=== PATIENT | female | born 1995 | race Caucasian/White ===

== ENCOUNTER 2017-04-10 06:00 | Day surgery (SDC) | payer BC ==
[~2017-04-10] VITALS: Ht 157.5 cm; Wt 54.4 kg
[~2017-04-10 06:00] MED LIST: ALBU17AE13 IH; FLO44 IH; PHEL5 PO; PRED20TA PO
[2017-04-10] MEDS ORDERED: CEFAZOLIN 1 GM IVPB PREMIX 50 ML IV ONE (07:00)
[2017-04-10] MEDS ORDERED: fentaNYL CITRATE/PF 100 MCG/2 ML AMP IVP PRN ×2 (08:15)
[2017-04-10] MEDS ORDERED: SEVOFLURANE 15 MIN GAS INH ONE (08:20)
[2017-04-10] MEDS ORDERED: MIDAZOLAM HCL 5 MG/ML VIAL (VERSED) IV ONE (08:20)
[2017-04-10] MEDS ORDERED: PROPOFOL 200MG/ 20ML VIAL (DIPRIVAN) IV ONE (08:20)
[2017-04-10] MEDS ORDERED: LR 1,000 ML IV.SOLN IV ONE (08:20)
[2017-04-10] MEDS ORDERED: fentaNYL CITRATE/PF 100 MCG/2 ML AMP IVP ONE (08:20)
[2017-04-10] MEDS ORDERED: OXYCODONE/ACETAMINOPHEN 5-325 TABLET PO PRN (08:30)
[2017-04-10] MEDS ORDERED: HYDROcodone/ACETAMIN 5-325 MG TAB (NORCO/ VICODIN) PO PRN (08:30)
[2017-04-10] MEDS ORDERED: ONDANSETRON HCL 4 MG/2 ML VIAL IVP PRN (08:30)
[2017-04-10 10:32] VITALS: BP_SYST 129
== END 2017-04-10 10:20 | disposition home or self-care (01) ==
LOC: SMU 06:00 → SDS 06:00
PROVIDERS: ATTEND Specialist
DX: N89.6 Tight hymenal ring (principal); J45.909 Unspecified asthma, uncomplicated; Z98.890 Other specified postprocedural states; Z79.899 Other long term (current) drug therapy
CPT/HCPCS: 56700; 58558; J0690; J2250; J2704; J3010; J7120

== ENCOUNTER 2018-03-12 08:03 | Day surgery (SDC) | payer BC ==
[~2018-03-12] VITALS: Ht 157.5 cm; Wt 54.4 kg
[~2018-03-12 08:03] MED LIST changes: +CEFAZOLIN SOD 1 GM in D5W 50 ML IV ONE
[2018-03-12] MEDS ORDERED: PROPOFOL 200MG/ 20ML VIAL (DIPRIVAN) IV ONE (09:00)
[2018-03-12] MEDS ORDERED: NS IRRIG SOLN 1000 ML IR ONE (09:00)
[2018-03-12] MEDS ORDERED: LR 1,000 ML IV.SOLN IV ONE (09:00)
[2018-03-12] MEDS ORDERED: BUPIVACAINE /EPINEPHRINE/PF 0.5% 30 ML VIAL INJ ONE (09:00)
[2018-03-12] MEDS ORDERED: MIDAZOLAM HCL 5 MG/5 ML VIAL IVP ONE (09:00)
[2018-03-12] MEDS ORDERED: SEVOFLURANE 15 MIN GAS INH ONE (09:00)
[2018-03-12] MEDS ORDERED: fentaNYL CITRATE/PF 100 MCG/2 ML AMP IVP PRN ×2 (09:30)
[2018-03-12] MEDS ORDERED: KETOROLAC TROMETHAMINE 30 MG VIAL IVP PRN (09:30)
[2018-03-12] MEDS ORDERED: ONDANSETRON HCL 4 MG/2 ML VIAL IVP PRN (10:00)
[2018-03-12] MEDS ORDERED: OXYCODONE/ACETAMINOPHEN 5-325 TABLET PO PRN (10:00)
[2018-03-12] MEDS ORDERED: HYDROcodone/ACETAMIN 5-325 MG TAB (NORCO/ VICODIN) PO PRN (10:00)
[2018-03-12 10:46] VITALS: BP_SYST 128
== END 2018-03-12 11:30 | disposition home or self-care (01) ==
LOC: SDS 08:03 → SMU 08:03 → SDS 11:30
PROVIDERS: ATTEND Specialist
DX: L72.0 Epidermal cyst (principal); N90.7 Vulvar cyst; J45.909 Unspecified asthma, uncomplicated; Z79.899 Other long term (current) drug therapy
CPT/HCPCS: 11422; 88304; J0690; J2250; J2704; J3490; J7060; J7120; 88305